=== PATIENT | female | born 1955 | race Caucasian/White ===

== ENCOUNTER 2018-02-20 16:28 | Inpatient (IN) | payer MEDICARE, MEDICAID ==
[~2018-02-20] VITALS: Ht 157.5 cm; Wt 50.0 kg
[~2018-02-20 16:28] MED LIST: BUDE10.22 INH; FLUT16SP2 INH; TIOT18CA INH
[2018-02-20] MEDS ORDERED: ALBUTEROL/IPRATROPIUM 2.5MG/0.5MG, 3 ML NPPB ONE (17:00)
[2018-02-20] MEDS ORDERED: ALBUTEROL/IPRATROPIUM 2.5MG/0.5MG, 3 ML ONE (17:20)
[2018-02-20] MEDS ORDERED: VANCOMYCIN PER PHARMACY IV ONE (17:30)
[2018-02-20 17:32] LABS: MEAN CORPUSCULAR HEMOGLOBIN 23.5 pg (27.0-34.8); MEAN CORPUSCULAR HGB CONC 31.3 g/dL (32.4-35.8); MEAN CORPUSCULAR VOLUME 75.2 fL (80-100); MEAN PLATELET VOLUME 7.3 fL (7.4-10.4); PLATELET COUNT 527 x10^3/uL (130-400); RED BLOOD COUNT 3.61 x10^6/uL (3.82-5.3); RED CELL DISTRIBUTION WIDTH 20.8 % (9.6-15.2)
[2018-02-20 17:44] LABS: ALANINE AMINOTRANSFERASE 12 U/L (12-78); ALBUMIN 2.7 g/dL (3.4-5.0); ANION GAP 8 mmol/L (5-15); CALCIUM 8.5 mg/dL (8.5-10.1); CHLORIDE 104 mmol/L (98-107); CREATININE 1.14 mg/dL (0.55-1.02)
[2018-02-20 17:48] LABS: ALKALINE PHOSPHATASE 142 U/L (45-117); BILIRUBIN,TOTAL 0.3 mg/dL (0.2-1.0); TOTAL PROTEIN 8.2 g/dL (6.4-8.2); TROPONIN I < 0.015 ng/mL (0.000-0.045)
[2018-02-20] MEDS ORDERED: PIPERACILLIN/TAZO/PMX 3.375GM 50 ML ONE (18:00)
[2018-02-20] MEDS ORDERED: PIPERACILLIN/TAZO/PMX 3.375GM 50 ML IVPB ONE (18:00)
[2018-02-20 18:01] LABS: MD YES
[2018-02-20 18:03] LABS: ANISOCYTOSIS 2+; BAND#(MANUAL) 0.71 x10^3/uL; BANDS%(MANUAL) 4 % (0-7); EOS#(MANUAL) 0.53 x10^3/uL (0.0-0.4); EOS% (MANUAL) 3 % (1-7); LYMPH#(MANUAL) 1.07 x10^3/uL (1-3.4); LYMPHS% (MANUAL) 6 % (22-44); MONOS#(MANUAL) 0.53 x10^3/uL (0.3-2.7); MONOS% (MANUAL) 3 % (2-9); SEG#(MANUAL) 14.95 x10^3/uL (1.8-6.8); SEGS% (MANUAL) 84 % (42-75)
[2018-02-20 18:04] LABS: HYPOCHROMIA 1+; MICROCYTOSIS 2+; POLYCHROMASIA 1+
[2018-02-20 18:05] LABS: <PLATELET ESTIMATE> INCREASED; <PLT MORPHOLOGY> NORMAL PLT MORPH; OVALOCYTES 1+
[2018-02-20] MEDS ORDERED: VANCOMYCIN PMX 1GM/200ML 200 ML IVPB ONE (18:30)
[2018-02-20] MEDS ORDERED: PHARMACY MAY ADJ FOR RENAL FX MC PRN (18:30)
[2018-02-20] MEDS ORDERED: VANCOMYCIN PER PHARMACY MC PRN (18:30)
[2018-02-20] MEDS: [UNRECOGNIZED DRUG - REMARK] MC SCH (19:30)
[2018-02-20] MEDS: OXYcodone/APAP 5/325MG TABLET PO PRN ×2 (19:46→23:37)
[2018-02-20] MEDS ORDERED: VANCOMYCIN PMX 1GM/200ML 200 ML IV SCH (20:00)
[2018-02-20] MEDS: FLUTICASONE NASAL SPRAY 16GM NAS SCH (21:00)
[2018-02-20] MEDS: GUAIFENESIN ER 600 MG TABLET PO SCH (22:40)
[2018-02-20] MEDS: ACETAMINOPHEN 325 MG TABLET PO PRN (22:40)
[2018-02-20] MEDS ORDERED: NICOTINE 21 MG/24 HR PATCH.TD24 TD ONE (23:30)
[2018-02-21] MEDS: PIPERACILLIN/TAZO/PMX 3.375GM 50 ML IV SCH ×4 (00:30→20:16)
[2018-02-21 01:25] VITALS: BP 111/69
[2018-02-21] MEDS: [UNRECOGNIZED DRUG - REMARK] MC SCH ×2 (03:30→09:48)
[2018-02-21 05:09] LABS: BASOPHILS % (AUTO) 0 % (0-1); EOSINOPHILS # (AUTO) 0.03 x10^3/uL (0-0.4); EOSINOPHILS % (AUTO) 0 % (1-7); LYMPHOCYTES # (AUTO) 1.35 x10^3/uL (1-3.4); LYMPHOCYTES % (AUTO) 9 % (22-44); MD NO; MEAN CORPUSCULAR HEMOGLOBIN 23.3 pg (27.0-34.8); MEAN PLATELET VOLUME 7.8 fL (7.4-10.4); MONOCYTES # (AUTO) 1.17 x10^3/uL (0.2-0.8); MONOCYTES % (AUTO) 7 % (2-9); NEUTROPHILS # (AUTO) 13.38 x10^3/uL (1.8-6.8); NEUTROPHILS % (AUTO) 84 % (42-75); PLATELET COUNT 421 x10^3/uL (130-400); RED BLOOD COUNT 3.33 x10^6/uL (3.82-5.3); RED CELL DISTRIBUTION WIDTH 21.4 % (9.6-15.2)
[2018-02-21 05:22] LABS: CHLORIDE 108 mmol/L (98-107)
[2018-02-21 05:32] LABS: ANION GAP 9 mmol/L (5-15); CALCIUM 8.8 mg/dL (8.5-10.1); CREATININE 1.02 mg/dL (0.55-1.02)
[2018-02-21] MEDS: OXYcodone/APAP 10/325MG TABLET PO PRN ×2 (05:34→12:43)
[2018-02-21 08:56] VITALS: BP 126/78
[2018-02-21] MEDS ORDERED: IPRATROPIUM 0.5 MG/2.5 ML INHA HHN SCH (09:30)
[2018-02-21] MEDS: GUAIFENESIN ER 600 MG TABLET PO SCH ×2 (09:47→20:17)
[2018-02-21] MEDS ORDERED: VANCOMYCIN PMX 1GM/200ML 200 ML IVPB SCH (11:00)
[2018-02-21] MEDS ORDERED: VANCOMYCIN PMX 1GM/200ML 200 ML IV SCH (14:00)
[2018-02-21 14:59] VITALS: BP 145/84
[2018-02-21] MEDS: ENOXAPARIN 40 MG/0.4 ML SQ SCH (15:00)
[2018-02-21] MEDS: ASA/APAP/ CAFFEINE TABLET PO PRN ×2 (15:24→20:17)
[2018-02-21] MEDS ORDERED: ASA/APAP/ CAFFEINE TABLET PO PRN (15:30)
[2018-02-21] MEDS ORDERED: ALBUTEROL/IPRATROPIUM 2.5MG/0.5MG, 3 ML NPPB PRN (17:00)
[2018-02-21 19:10] VITALS: BP 132/72
[2018-02-21] MEDS: ALBUTEROL/IPRATROPIUM 2.5MG/0.5MG, 3 ML NPPB SCH (19:52)
[2018-02-21] MEDS: FLUTICASONE NASAL SPRAY 16GM NAS SCH (20:16)
[2018-02-21] MEDS: ACETAMINOPHEN 325 MG TABLET PO PRN (20:17)
[2018-02-22] MEDS: GUAIFENESIN/DM 100-10MG, 5ML UDC PO PRN ×2 (00:08→06:39)
[2018-02-22] MEDS: ASA/APAP/ CAFFEINE TABLET PO PRN ×3 (00:08→19:17)
[2018-02-22 02:06] VITALS: BP 132/81
[2018-02-22] MEDS: PIPERACILLIN/TAZO/PMX 3.375GM 50 ML IV SCH ×3 (02:10→15:09)
[2018-02-22 05:05] LABS: ANION GAP 7 mmol/L (5-15); CALCIUM 8.6 mg/dL (8.5-10.1); CHLORIDE 111 mmol/L (98-107)
[2018-02-22 05:09] LABS: ABSOLUTE RETICS # 0.067 x10^6/uL (0.5-2.5); RETICULOCYTE COUNT % 2.23 % (0.5-1.5)
[2018-02-22 05:10] LABS: RED BLOOD COUNT 3.01 x10^6/uL (3.82-5.3)
[2018-02-22 05:13] LABS: % IRON SATURATION 4 % (20-55); CREATININE 0.93 mg/dL (0.55-1.02); IRON LEVEL 13 mcg/dL (50-170); TOTAL IRON BINDING CAPACITY 292 mcg/dL (250-450); TRANSFERRIN 256 mg/dL (200-360)
[2018-02-22 05:28] LABS: BASOPHILS % (AUTO) 0 % (0-1); EOSINOPHILS # (AUTO) 0.02 x10^3/uL (0-0.4); EOSINOPHILS % (AUTO) 0 % (1-7); LYMPHOCYTES # (AUTO) 1.18 x10^3/uL (1-3.4); LYMPHOCYTES % (AUTO) 7 % (22-44); MD NO; MEAN CORPUSCULAR HEMOGLOBIN 23.7 pg (27.0-34.8); MEAN CORPUSCULAR HGB CONC 31.4 g/dL (32.4-35.8); MEAN CORPUSCULAR VOLUME 75.6 fL (80-100); MEAN PLATELET VOLUME 7.9 fL (7.4-10.4); MONOCYTES # (AUTO) 1.04 x10^3/uL (0.2-0.8); MONOCYTES % (AUTO) 7 % (2-9); NEUTROPHILS # (AUTO) 13.78 x10^3/uL (1.8-6.8); NEUTROPHILS % (AUTO) 86 % (42-75); PLATELET COUNT 367 x10^3/uL (130-400); RED BLOOD COUNT 2.99 x10^6/uL (3.82-5.3); RED CELL DISTRIBUTION WIDTH 20.6 % (9.6-15.2)
[2018-02-22] MEDS: ACETAMINOPHEN 325 MG TABLET PO PRN (06:39)
[2018-02-22] MEDS: ALBUTEROL/IPRATROPIUM 2.5MG/0.5MG, 3 ML NPPB SCH ×4 (06:56→20:20)
[2018-02-22 08:58] VITALS: BP 134/84
[2018-02-22] MEDS: GUAIFENESIN ER 600 MG TABLET PO SCH ×2 (10:04→19:17)
[2018-02-22 13:00] VITALS: BP 113/81
[2018-02-22] MEDS ORDERED: PNEUMOCOCCAL 23 VACCINE IM-VACC ONE (13:00)
[2018-02-22] MEDS: ENOXAPARIN 40 MG/0.4 ML SQ SCH (15:09)
[2018-02-22] MEDS: OXYcodone/APAP 5/325MG TABLET PO PRN ×3 (15:09→23:48)
[2018-02-22] MEDS ORDERED: LEVOFLOXACIN/PMX 750MG/150ML 150 ML IV SCH (16:30)
[2018-02-22 16:40] LABS: BASOPHILS # (AUTO) 0.01 x10^3/uL (0-0.1); BASOPHILS % (AUTO) 0 % (0-1); EOSINOPHILS # (AUTO) 0.04 x10^3/uL (0-0.4); EOSINOPHILS % (AUTO) 0 % (1-7); LYMPHOCYTES # (AUTO) 1.22 x10^3/uL (1-3.4); LYMPHOCYTES % (AUTO) 8 % (22-44); MD NO; MEAN CORPUSCULAR HGB CONC 30.8 g/dL (32.4-35.8); MEAN CORPUSCULAR VOLUME 74.6 fL (80-100); MEAN PLATELET VOLUME 7.3 fL (7.4-10.4); MONOCYTES # (AUTO) 0.86 x10^3/uL (0.2-0.8); MONOCYTES % (AUTO) 6 % (2-9); NEUTROPHILS # (AUTO) 13.27 x10^3/uL (1.8-6.8); NEUTROPHILS % (AUTO) 86 % (42-75); PLATELET COUNT 423 x10^3/uL (130-400); RED BLOOD COUNT 3.45 x10^6/uL (3.82-5.3); RED CELL DISTRIBUTION WIDTH 21.3 % (9.6-15.2)
[2018-02-22 18:51] VITALS: BP 127/76
[2018-02-22] MEDS: NICOTINE 21 MG/24 HR PATCH.TD24 TD SCH (19:15)
[2018-02-22] MEDS: FLUTICASONE NASAL SPRAY 16GM NAS SCH (19:17)
[2018-02-23 02:38] VITALS: BP 133/84
[2018-02-23] MEDS: OXYcodone/APAP 5/325MG TABLET PO PRN ×3 (04:09→12:26)
[2018-02-23] MEDS ORDERED: SENNA/DOCUSATE TABLET PO PRN (04:30)
[2018-02-23 05:08] LABS: OCCULT BLOOD NEGATIVE (NEGATIVE)
[2018-02-23 07:20] VITALS: BP 126/84
[2018-02-23] MEDS: ALBUTEROL/IPRATROPIUM 2.5MG/0.5MG, 3 ML NPPB SCH (07:32)
[2018-02-23] MEDS: GUAIFENESIN ER 600 MG TABLET PO SCH (08:30)
[2018-02-23] MEDS: NICOTINE 21 MG/24 HR PATCH.TD24 TD SCH (08:31)
[2018-02-23] MEDS ORDERED: GABAPENTIN 300 MG CAPSULE PO SCH (09:00)
[2018-02-23] MEDS ORDERED: LEVOFLOXACIN 750 MG TABLET PO SCH (09:00)
[2018-02-23] MEDS ORDERED: LEVO750T26 PO (09:33)
[2018-02-23] MEDS ORDERED: ALBUTEROL/IPRATROPIUM 2.5MG/0.5MG, 3 ML NPPB PRN (15:00)
== END 2018-02-23 13:40 | disposition home or self-care (01) | DRG 871 ==
LOC: ED 17:35 → EDIP 17:36 → ED 17:55 → 3NE 19:05
PROVIDERS: ADMIT Internal Medicine Pulmonary Disease; ATTEND Internal Medicine Pulmonary Disease
DX: A41.9 Sepsis, unspecified organism (principal); J15.9 Unspecified bacterial pneumonia; J96.01 Acute respiratory failure with hypoxia; N17.0 Acute kidney failure with tubular necrosis; J44.0 Chronic obstructive pulmonary disease with (acute) lower respiratory infection; F17.213 Nicotine dependence, cigarettes, with withdrawal; J44.1 Chronic obstructive pulmonary disease with (acute) exacerbation; D50.9 Iron deficiency anemia, unspecified; G89.29 Other chronic pain; M54.9 Dorsalgia, unspecified; M48.00 Spinal stenosis, site unspecified; Z60.2 Problems related to living alone; Z82.3 Family history of stroke; Z82.49 Family history of ischemic heart disease and other diseases of the circulatory system; Z90.710 Acquired absence of both cervix and uterus; Z90.49 Acquired absence of other specified parts of digestive tract
CPT/HCPCS: 36415; 71045; 80048; 80053; 82272; 82728; 83540; 83550; 83605; 83735; 83880; 84466; 84484; 85025; 85045; 87040; 90732; 93005; 93306; 94640; 96372; 96374; 96376; J1650; J1956; J2543; J3370; J7620; J7512

== ENCOUNTER 2019-01-18 06:21 | Emergency (ER) | payer MEDICAID, MEDICARE ==
[~2019-01-18] VITALS: Ht 157.5 cm; Wt 55.4 kg
[~2019-01-18 06:21] MED LIST changes: +LEVO750T26 PO
--- NOTE | 2019-01-18 06:43 | NUR ---
PT. TO ED WITH C/O SOB TODAY "I HAVE COPD BUT I KNOW THAT THIS ISN'T FROM THAT, IT'S BECASUE I HAD ONE OF MY FRIENDS COCKTAILS I HAD. WHEN SHE HAD ONE THE SAME THING HAPPENED TO HER." PT. REPORTS SMOKES 1/2 PACK PER DAY. RA SAT 97%. PT. ABLE TO SPEAK IN FULL SENTENCES. PT. PLACED ON CONTINUOUS PULSE OX, B/P, AND HEART MONITORS. CALL LIGHT IN REACH. ALL SAFETY MEASURES OBSERVED. DR. RANGEL IN TO EVAL PT. AND DISCUSS POC. Addendum: 01/18/19 at 0650 by SILVIA PT. REPORTS "COCKATIEL" IN A PET BIRD. NOT A COCKTAIL. PT. DOESN'T DRINK ALCOHOL.
--- NOTE | 2019-01-18 06:52 | NUR ---
REPORT TO AMY OSORIO TO ASSUME PT. CARE.
[2019-01-18] MEDS ORDERED: ALBUTEROL/IPRATROPIUM 2.5MG/0.5MG, 3 ML NPPB SCH (07:00)
[2019-01-18] MEDS ORDERED: SODIUM CHLORIDE FLUSH 10ML SYR IVF ONE (07:00)
[2019-01-18] MEDS ORDERED: ALBUTEROL/IPRATROPIUM 2.5MG/0.5MG, 3 ML ONE (07:17)
[2019-01-18 07:32] LABS: BASOPHILS # (AUTO) 0.09 x10^3/uL (0-0.1); BASOPHILS % (AUTO) 1 % (0-1); EOSINOPHILS # (AUTO) 0.02 x10^3/uL (0-0.4); EOSINOPHILS % (AUTO) 0 % (1-7); LYMPHOCYTES # (AUTO) 1.41 x10^3/uL (1-3.4); LYMPHOCYTES % (AUTO) 12 % (22-44); MD NO; MEAN CORPUSCULAR HEMOGLOBIN 32.6 pg (27.0-34.8); MEAN CORPUSCULAR HGB CONC 33.1 g/dL (32.4-35.8); MEAN CORPUSCULAR VOLUME 98.5 fL (80-100); MEAN PLATELET VOLUME 9.5 fL (7.4-10.4); MONOCYTES # (AUTO) 0.51 x10^3/uL (0.2-0.8); MONOCYTES % (AUTO) 5 % (2-9); NEUTROPHILS # (AUTO) 9.31 x10^3/uL (1.8-6.8); NEUTROPHILS % (AUTO) 82 % (42-75); PLATELET COUNT 260 x10^3/uL (130-400); RED BLOOD COUNT 4.83 x10^6/uL (3.82-5.3); RED CELL DISTRIBUTION WIDTH 15.8 % (9.6-15.2)
[2019-01-18 07:38] LABS: ALANINE AMINOTRANSFERASE 16 U/L (12-78); ALBUMIN 4.1 g/dL (3.4-5.0); ANION GAP 8 mmol/L (5-15); CALCIUM 8.8 mg/dL (8.5-10.1); CHLORIDE 117 mmol/L (98-107); CREATININE 1.62 mg/dL (0.55-1.02)
[2019-01-18 07:42] LABS: ALKALINE PHOSPHATASE 94 U/L (45-117); BILIRUBIN,TOTAL 0.4 mg/dL (0.2-1.0); TOTAL PROTEIN 8.7 g/dL (6.4-8.2); TROPONIN I < 0.015 ng/mL (0.000-0.045)
[2019-01-18 08:17] VITALS: BP 105/62
--- NOTE | 2019-01-18 08:17 | NUR ---
ADJUSTED HOB FOR COMFORT. WARM AIR BLOWER PROVIDED. PT AWAITING RECHECK.
--- NOTE | 2019-01-18 09:51 | NUR ---
Patient/Caregiver given discharge instructions and they have confirmed that they understand the instructions. Patient ambulatory with steady gait. PATIENT GIVEN SPACER FOR INHALER AT THE REQUEST OF DR. RANGEL AND INSTRUCTED IN USE.
== END 2019-01-18 09:53 | disposition home or self-care (01) ==
LOC: ED 09:33
DX: J43.9 Emphysema, unspecified (principal); F17.200 Nicotine dependence, unspecified, uncomplicated; Z88.1 Allergy status to other antibiotic agents
CPT/HCPCS: 36415; 71045; 80053; 83605; 83880; 84484; 85025; 87040; 93005; 94640; 99284; J7512; J7620

== ENCOUNTER 2019-06-03 09:29 | Emergency (ER) | payer MEDICARE ==
[~2019-06-03] VITALS: Ht 157.5 cm; Wt 54.7 kg
[2019-06-03 11:27] VITALS: BP 118/75
== END 2019-06-03 12:31 | disposition home or self-care (01) ==
LOC: ED 12:16
DX: M13.111 Monoarthritis, not elsewhere classified, right shoulder (principal); J44.9 Chronic obstructive pulmonary disease, unspecified; F17.200 Nicotine dependence, unspecified, uncomplicated; Z90.49 Acquired absence of other specified parts of digestive tract; Z72.9 Problem related to lifestyle, unspecified
CPT/HCPCS: 73200; 96372; 99284; J1170

== ENCOUNTER 2021-07-03 20:01 | Inpatient (IN) | payer MEDICARE, MEDICAID ==
[~2021-07-03] VITALS: Ht 154.9 cm; Wt 53.3 kg
[~2021-07-03 20:01] MED LIST changes: +BUPR150F3 BC; +DOXY100C5 PO; +GABA800T5 PO; +PRED20TA PO
[2021-07-03 21:16] LABS: BASOPHILS % (AUTO) 2 % (0-1); EOSINOPHILS % (AUTO) 1 % (1-7); LYMPHOCYTES % (AUTO) 22 % (22-44); MEAN CORPUSCULAR HEMOGLOBIN 31.5 pg (27.0-34.8); MEAN CORPUSCULAR HGB CONC 33.3 g/dL (32.4-35.8); MEAN PLATELET VOLUME 8.3 fL (7.4-10.4); MONOCYTES % (AUTO) 10 % (2-9); NEUTROPHILS % (AUTO) 65 % (42-75); PLATELET COUNT 274 x10^3/uL (130-400); RED BLOOD COUNT 4.72 x10^6/uL (3.82-5.3); RED CELL DISTRIBUTION WIDTH 16.4 % (9.6-15.2)
[2021-07-03 21:23] LABS: ALANINE AMINOTRANSFERASE 34 U/L (12-78); ANION GAP 9 mmol/L (5-15); CALCIUM 8.3 mg/dL (8.5-10.1); CHLORIDE 96 mmol/L (98-107); CREATININE 1.52 mg/dL (0.55-1.02)
[2021-07-03 21:27] LABS: ALKALINE PHOSPHATASE 82 U/L (45-117); BILIRUBIN,TOTAL 0.3 mg/dL (0.2-1.0); TOTAL PROTEIN 7.3 g/dL (6.4-8.2)
--- NOTE | 2021-07-03 22:01 | NUR ---
NIL X1 FOR US
--- NOTE | 2021-07-03 23:11 | NUR ---
NOT IN LOBBY FOR US X3
--- NOTE | 2021-07-03 23:11 | NUR ---
NOT IN LOBBY
--- NOTE | 2021-07-03 23:29 | NUR ---
NOT IN LOBBY
--- NOTE | 2021-07-04 00:21 | NUR ---
PT TO ROOM FROM
[2021-07-04] MEDS ORDERED: FUROSEMIDE 40 MG/4 ML IV ONE (00:30)
[2021-07-04] MEDS ORDERED: FUROSEMIDE 20 MG/2 ML ONE (01:08)
--- NOTE | 2021-07-04 02:00 | NUR ---
PT UP TO RESTROOM. HAS STEADY INDEPENDENT GAIT
[2021-07-04] MEDS: ENOXAPARIN 40 MG/0.4 ML SQ SCH (02:30)
[2021-07-04] MEDS ORDERED: ACETAMINOPHEN 650 MG/20.3 ML UDC PO PRN (02:30)
[2021-07-04] MEDS ORDERED: ONDANSETRON 2MG/ML, 2ML IV PRN (02:30)
[2021-07-04] MEDS ORDERED: DOCUSATE 100 MG CAPSULE PO PRN (02:30)
--- NOTE | 2021-07-04 02:42 | NUR ---
pt up to restroom
--- NOTE | 2021-07-04 03:11 | NUR ---
pt moved to hospital bed
--- NOTE | 2021-07-04 03:11 | NUR ---
report to Lefty REYES
--- NOTE | 2021-07-04 04:17 | NUR ---
PT RESTING AT THIS TIME. DENIES NEEDS. AWAITING IP BED ASSIGNMENT
[2021-07-04 04:27] LABS: TROPONIN I < 0.015 ng/mL (0.000-0.045)
[2021-07-04] MEDS ORDERED: ALBUTEROL HFA 90 MCG/SPRAY INH PRN (05:00)
[2021-07-04 05:32] LABS: BASOPHILS % (AUTO) 1 % (0-1); EOSINOPHILS % (AUTO) 1 % (1-7); LYMPHOCYTES % (AUTO) 16 % (22-44); MEAN CORPUSCULAR HEMOGLOBIN 31.7 pg (27.0-34.8); MEAN CORPUSCULAR HGB CONC 33.6 g/dL (32.4-35.8); MEAN PLATELET VOLUME 8.7 fL (7.4-10.4); MONOCYTES % (AUTO) 9 % (2-9); NEUTROPHILS % (AUTO) 73 % (42-75); PLATELET COUNT 260 x10^3/uL (130-400); RED BLOOD COUNT 4.93 x10^6/uL (3.82-5.3); RED CELL DISTRIBUTION WIDTH 16.5 % (9.6-15.2)
[2021-07-04 05:38] LABS: ANION GAP 8 mmol/L (5-15); CALCIUM 8.9 mg/dL (8.5-10.1); CHLORIDE 102 mmol/L (98-107); CREATININE 1.17 mg/dL (0.55-1.02)
[2021-07-04] MEDS ORDERED: ASPIRIN 81 MG TABLET EC ONE (05:45)
[2021-07-04] MEDS: ASPIRIN 81 MG TABLET EC PO SCH (05:47)
--- NOTE | 2021-07-04 06:53 | NUR ---
REPORT TO AMY BHANDARI NO FURTHER QUESTIONS AT THIS TIME.
--- NOTE | 2021-07-04 07:54 | NUR ---
PT RESTINGCLAMLY IN BED. NO STATED NEEDS AT THIS TIME. WILL CONTINUE TO MONITOR. VSS.
[2021-07-04] MEDS ORDERED: FUROSEMIDE 40 MG/4 ML ONE (08:12)
[2021-07-04] MEDS: TIOTROPIUM BROMIDE 18 MCG/INH INH SCH (08:16)
[2021-07-04 08:43] LABS: TROPONIN I < 0.015 ng/mL (0.000-0.045)
--- NOTE | 2021-07-04 08:47 | NUR ---
PT JUST BACK TO ROOM FROM BATHROOM. PT ABLE TO AMBULATE STEADLY IN HALLWAY. PT GIVEN MEAL TRAY. PT ASKING TO TAKE INHALORS AFTER SHE EATS. HOSPITALIST IN SPEAKING WITH PT.
[2021-07-04] MEDS ORDERED: FLUTICASONE/VILANTEROL 200-25MCG/INH INH SCH (09:00)
[2021-07-04] MEDS ORDERED: FUROSEMIDE 20 MG/2 ML IVPush SCH (09:00)
--- NOTE | 2021-07-04 09:13 | NUR ---
PT VISTING WITH FAMILY MEMBER. NO STATED NEEDS AT THIS TIME. PT CONTINUES TO GET UP TO THE BATHROOM STEADILY. WILL CONTINUE TO MONITOR.
--- NOTE | 2021-07-04 12:52 | NUR ---
PT WAS UP TO BATHROOM. PT GIVEN MEAL TRAY. P T SITTING UP ON EDGE OF BED EATING. WILL CONTINUE TO MONITOR.
--- NOTE | 2021-07-04 13:47 | NUR ---
PT RESTING CALMLY IN BED AT THIS TIME WITH EYES CLOSED. PT O2 SAT ON RA WAS 85%. PT PLACED ON 3L PER N/C. PT SAT NOW 96%.
--- NOTE | 2021-07-04 14:05 | NUR ---
REPORT GIVEN TO ROBBY REYES
[2021-07-04 16:52] VITALS: BP 107/70
[2021-07-04 20:15] VITALS: BP 103/68
[2021-07-04] MEDS ORDERED: GABAPENTIN 400 MG CAPSULE PO ONE (21:00)
[2021-07-05] VITALS (7 sets, daily range): BP systolic 99–125; BP diastolic 62–80
[2021-07-05] MEDS: ENOXAPARIN 40 MG/0.4 ML SQ SCH (03:11)
[2021-07-05] MEDS: ASPIRIN 81 MG TABLET EC PO SCH (05:17)
[2021-07-05 05:44] LABS: ANION GAP 7 mmol/L (5-15); CALCIUM 8.3 mg/dL (8.5-10.1); CHLORIDE 105 mmol/L (98-107); CREATININE 0.99 mg/dL (0.55-1.02)
[2021-07-05] MEDS: FUROSEMIDE 40 MG/4 ML IVPush SCH (09:28)
[2021-07-05] MEDS: FLUTICASONE/VILANTEROL 200-25MCG/INH INH SCH (11:07)
[2021-07-05] MEDS: TIOTROPIUM BROMIDE 18 MCG/INH INH SCH (11:07)
[2021-07-06 01:27] VITALS: BP 122/84
[2021-07-06] MEDS: ENOXAPARIN 40 MG/0.4 ML SQ SCH (02:07)
[2021-07-06] MEDS: ASPIRIN 81 MG TABLET EC PO SCH (05:59)
[2021-07-06 06:03] LABS: ANION GAP 5 mmol/L (5-15); CALCIUM 9.1 mg/dL (8.5-10.1); CHLORIDE 107 mmol/L (98-107); CREATININE 0.97 mg/dL (0.55-1.02)
[2021-07-06 06:51] VITALS: BP 102/68
[2021-07-06] MEDS: FUROSEMIDE 40 MG/4 ML IVPush SCH (10:19)
[2021-07-06] MEDS: FLUTICASONE/VILANTEROL 200-25MCG/INH INH SCH (10:20)
[2021-07-06] MEDS: TIOTROPIUM BROMIDE 18 MCG/INH INH SCH (10:20)
[2021-07-06] MEDS ORDERED: GABAPENTIN 400 MG CAPSULE PO SCH (11:00)
[2021-07-06] MEDS ORDERED: LISI5TAB7 PO (12:33)
[2021-07-06] MEDS ORDERED: METO25TA35 PO (12:33)
[2021-07-06] MEDS ORDERED: ASPI81TA45 PO (12:33)
[2021-07-06] MEDS ORDERED: FURO-93 PO (12:33)
[2021-07-06 14:00] VITALS: BP 133/86
== END 2021-07-06 15:07 | disposition home or self-care (01) | DRG 291 ==
LOC: ED 20:21 → EDIP 07-04 02:14 → 5SO 07-04 15:35
PROVIDERS: ADMIT Internal Medicine; ATTEND Internal Medicine
DX: I50.31 Acute diastolic (congestive) heart failure (principal); J96.01 Acute respiratory failure with hypoxia; N17.9 Acute kidney failure, unspecified; I27.21 Secondary pulmonary arterial hypertension; J44.9 Chronic obstructive pulmonary disease, unspecified; F19.10 Other psychoactive substance abuse, uncomplicated; G89.29 Other chronic pain; I07.1 Rheumatic tricuspid insufficiency; F17.200 Nicotine dependence, unspecified, uncomplicated; G47.33 Obstructive sleep apnea (adult) (pediatric); M19.90 Unspecified osteoarthritis, unspecified site; Z79.899 Other long term (current) drug therapy; Z87.01 Personal history of pneumonia (recurrent)
CPT/HCPCS: 36415; 71045; 80048; 80053; 83880; 84484; 85025; 93005; 93306; 93970; 96374; G0378; J1650; J1940